=== PATIENT | female | born 2000 | race Two or more races ===

== ENCOUNTER 2022-06-11 21:13 | Emergency (ER) | payer OTHER ==
[~2022-06-11] VITALS: Ht 162.6 cm; Wt 63.5 kg
[2022-06-11 22:37] LABS: HEMATOCRIT 37.3 % (31.2-41.9); MEAN CORPUSCULAR HEMOGLOBIN 27.9 uug (24.7-32.8); MEAN CORPUSCULAR VOLUME 83.9 fL (75.5-95.3); PLATELET COUNT (AUTO) 271 K/uL (179-408)
[2022-06-11 22:40] LABS: CREATININE 0.7 mg/dL (0.6-1.3); POTASSIUM 3.4 mmol/L (3.5-5.1)
[2022-06-11 22:42] LABS: *BILIRUBIN,URIN NEGATIVE (NEGATIVE); *BLOOD, URINE 2+ (NEGATIVE); *CLARITY,URINE CLEAR (CLEAR); *COLOR,URINE YELLOW (YELLOW); *KETONES,URINE 2+ (NEGATIVE); *UROBILINOGEN,URINE 0.2 E.U./dl (NORMAL); LEUKOCYTE ESTERASE ,URINE NEGATIVE (NEGATIVE); NITRITE, URINE NEGATIVE (NEGATIVE); PH,URINE 5.5 (5.0-8.0); UGLUCOSE NEGATIVE (NEGATIVE)
[2022-06-11 22:44] LABS: *URINE HCG, QUAL NEGATIVE (NEGATIVE)
[2022-06-11 22:50] LABS: SQUAMOUS EPITHELIAL CELL,UR FEW /HPF (NONE SEEN)
[2022-06-11 22:51] LABS: BACTERIA,URINE FEW /HPF (NONE SEEN); WBC,URINE NONE SEEN /HPF (0-3)
--- NOTE | 2022-06-12 00:19 | NUR ---
Patient is discharged home. Discharge instructions given. Patient verbalized understanding. Patient ambulates off unit with her boyfriend in no distress.
[2022-06-12 00:22] VITALS: BP 122/61
== END 2022-06-12 00:15 | disposition home or self-care (01) ==
LOC: ER 21:13
DX: N92.0 Excessive and frequent menstruation with regular cycle (principal); E87.6 Hypokalemia
CPT/HCPCS: 36415; 76856; 84703; 85025; A4663